=== PATIENT | female | born 1945 | race Caucasian/White ===

== ENCOUNTER → 2021-06-08 | Outpatient (CLI) | payer MEDICARE ==
[~2021-06-08] MED LIST: ATORVASTATIN CA40 MG PO; CLONAZEPAM0.25 MG PO; COZAAR100 MG PO; ELIQUIS2.5 MG PO; FLUOXETINE HCL20 M1 PO; PANTOPRAZOLE SO40 MG PO; TAZTIA XT240 MG PO; VOLTAREN EC 7575 MG PO
== END ==
LOC: KOH-I 14:00
DX: F17.210 Nicotine dependence, cigarettes, uncomplicated (principal); I25.10 Atherosclerotic heart disease of native coronary artery without angina pectoris
CPT/HCPCS: 71271